=== PATIENT | male | born 1935 | race Caucasian/White ===

== ENCOUNTER 2018-07-24 06:57 | Day surgery (SDC) | payer MEDICARE, BC ==
[~2018-07-24 06:57] MED LIST: Midazolam 1 MG/ML 2 ML SDV ONE; fentaNYL 100 MCG/2 ML SDV ONE
[2018-07-24] MEDS ORDERED: Midazolam 1 MG/ML 2 ML SDV IV ONE ×2 (06:58→07:26)
[2018-07-24] MEDS ORDERED: fentaNYL 100 MCG/2 ML SDV IV ONE ×2 (06:58→07:25)
[2018-07-24] MEDS ORDERED: Dextrose 5%-0.45% NaCl 1,000 ML IV SCH (07:30)
--- NOTE | 2018-07-24 08:03 | OR ---
DATE: 07/24/2018 PROCEDURES PERFORMED: Esophagogastroduodenoscopy and multiple pinch biopsies. INSTRUMENT USED: GIF-H180 Olympus video panendoscope. PREMEDICATIONS: No oral or topical anesthesia used. Fentanyl 50 mcg intravenous, Versed 1 mg intravenous. The procedure was done under pulse oximetry, BP recording, and color television console monitor. INDICATION: The patient with persistent nausea unexplained and not responsive to medical measures, on H2RA. Esophagogastroduodenoscopy is performed for detection of any active erosive lesions, Bhatti esophagus, and/or malignancy also under consideration. H. pylori status to be determined, endoscopic hemostasis therapy if needed. DESCRIPTION OF PROCEDURE: The scope was passed with ease. Adequate visualization of the esophagus was made from proximal to distal areas. No upper esophageal lesions identified. No distal esophageal stricture. No uphill or downhill esophageal varices. No Fernanda-Harkins tear. No evidence of erosive esophagitis by Fostoria criteria. No esophageal polyp or tumor mass identified. Small sliding hiatal hernia was noted. Gastric fundus examination by retroflexion showed no polypoid lesions. No proximal gastric varices noted. No gastric ulcer, malignant mass, or vascular ectasia identified. Duodenal bulb showed no ulcer. Visualized second part of the duodenum was unremarkable. Multiple pinch biopsies were taken from the gastric antrum and proximal body and sent for PyloriTek test for H. pylori, and if negative in an hour, tissues to be sent for histopathology. No bleeding was noted from any of the visualized areas at the completion of examination. Photographs were taken of the duodenal bulb, gastric antrum, fundus, and distal esophagus. IMPRESSION: Sliding hiatal hernia. The patient tolerated the procedure well. [facility] /[id number]
== END 2018-07-24 09:37 | disposition home or self-care (01) ==
LOC: DL.ENDO 06:57
PROVIDERS: ATTEND Internal Medicine Gastroenterology
DX: K29.50 Unspecified chronic gastritis without bleeding (principal); K90.49 Malabsorption due to intolerance, not elsewhere classified; H91.90 Unspecified hearing loss, unspecified ear; M19.90 Unspecified osteoarthritis, unspecified site; N40.0 Benign prostatic hyperplasia without lower urinary tract symptoms; N52.9 Male erectile dysfunction, unspecified
CPT/HCPCS: 43239; 87077; J2250; J3010; J7042

== ENCOUNTER 2020-12-27 10:21 | Day surgery (SDC) | payer OTHER, MEDICARE, BC ==
[2020-12-27] MEDS ORDERED: Sodium Chloride 0.9% 10 ML Syringe IV ONE (10:22)
[2020-12-27] MEDS ORDERED: Dexamethasone 4 MG/ML SDV IV ONE (10:22)
[2020-12-27] MEDS ORDERED: Midazolam 1 MG/ML 2 ML SDV IV ONE (10:22)
[2020-12-27] MEDS ORDERED: Cataract Ophth Solution EYERT ONE (10:30)
[2020-12-27] MEDS ORDERED: Ondansetron 4 MG/2 ML SDV IVPUSH PRN (10:45)
[2020-12-27] MEDS ORDERED: Timolol Maleate 0.5% Ophth Soln 5 ML Bottle EYERT ONE (10:45)
[2020-12-27] MEDS ORDERED: Acetaminophen 325 MG Tab PO PRN (10:45)
[2020-12-27] MEDS ORDERED: Povidone-Iodine 5% Sterile Ophth Soln 30 ML Bottle EYERT ONE (10:45)
[2020-12-27] MEDS ORDERED: Acetaminophen/Codeine 300-30 MG Tab PO PRN (10:45)
[2020-12-27] MEDS ORDERED: Sodium Chloride 0.9% 10 ML Syringe FLUSH PRN (10:45)
[2020-12-27] MEDS ORDERED: Tropicamide 1% Ophth Soln 15 ML Bottle EYERT ONE (10:45)
[2020-12-27] MEDS ORDERED: Proparacaine 0.5% Ophth Soln 15 ML Bottle EYERT ONE (10:45)
[2020-12-27] MEDS ORDERED: Phenylephrine 10% Ophth Soln 5 ML Bot EYERT ONE (10:45)
[2020-12-27] MEDS ORDERED: Moxifloxacin 0.5% Ophth Soln 3 ML Bottle EYERT ONE (10:45)
--- NOTE | 2020-12-28 07:39 | OR ---
DATE: 12/27/2020 PREOPERATIVE DIAGNOSIS: Retained nucleus/epinucleus, right eye. POSTOPERATIVE DIAGNOSIS: Retained nucleus/epinucleus, right eye. ANESTHESIA: Local MAC. INDICATION: Mr. Wilson was seen in the clinic. His examination revealed a piece of nucleus/epinucleus with some surrounding cortex in the inferior chamber angle in the right eye. He has noticed a floater occasionally. He has also had low-grade inflammation. I explained options and recommended removal. I explained risks including, but not limited to infection, loss of vision, need for additional surgery, risks associated with anesthesia amongst others. He voiced understanding and wished to proceed. OPERATIVE DESCRIPTION: After informed consent was obtained and the risks, benefits, and alternatives were explained, Mr. Wilson was brought to the OR and prepped and draped in a sterile fashion. Attention was placed on the right eye. A sterile lid speculum was placed into the right eye to allow operative exposure. A full-thickness paracentesis was then made temporally. Preservative- free lidocaine followed by viscoelastic was injected into the anterior chamber. A 2.75 mm corneal incision was also made temporally. I and A probe was inserted into the anterior chamber. A piece of brunescent nucleus was removed using the I and A tip from the inferior chamber angle. This was aspirated using the assistance of a Nagahara to chop and compress the small fragment. Remaining viscoelastic was then aspirated from the anterior chamber. The wound and paracentesis sites were hydrated using balanced saline solution. 0.1 mL of preservative-free vancomycin was injected intracamerally. Postoperative medications were administered. Sterile patch and shield were placed over the eye. The patient was awakened from light sedation and transported to the postoperative recovery area having tolerated the procedure well. No complications occurred. [facility] /[id number]
== END 2020-12-27 12:51 | disposition home or self-care (01) ==
LOC: DL.SDS 10:21
PROVIDERS: ATTEND Ophthalmology
DX: H59.021 Cataract (lens) fragments in eye following cataract surgery, right eye (principal); I25.10 Atherosclerotic heart disease of native coronary artery without angina pectoris; Z98.890 Other specified postprocedural states; Z90.49 Acquired absence of other specified parts of digestive tract; Z87.891 Personal history of nicotine dependence; Z88.8 Allergy status to other drugs, medicaments and biological substances; Z79.82 Long term (current) use of aspirin
CPT/HCPCS: 66840; J1100; J2250

== ENCOUNTER 2021-01-09 18:46 | Emergency (ER) | payer OTHER, MEDICARE, BC ==
[2021-01-09 20:02] LABS: CORONAVIRUS COVID-19 NAA NEGATIVE (NEGATIVE)
[2021-01-09] MEDS ORDERED: Sodium Chloride 0.9% 1,000 ML IV ONE (21:14)
[2021-01-09] MEDS ORDERED: Metoclopramide 10 MG/2 ML SDV IVPUSH ONE ×2 (21:14→23:56)
--- NOTE | 2021-01-09 21:22 | EDM.PDOC ---
"ED HPI GENERAL MEDICAL PROBLEM - General Chief Complaint: Fever Stated Complaint: 100.2, NAUSEA Time Seen by Provider: 01/09/21 21:05 Source of Information: Reports: Patient History Limitations: Reports: No Limitations - History of Present Illness INITIAL COMMENTS - FREE TEXT/NARRATIVE: This 85 yo male patient was brought to the ED by his family due to a 2 day history of nausea and a fever (101) at home. The patient reports he did attempt to take Zofran for symptom relief, but has had no changes in his symptoms. The patient reports he has a history of cardiac stents. The patient reports he had his gallbladder removed last year due to similar symptoms. The patient denies any abdominal pain. The patient reports his last bowel movement was yesterday and was normal. The patient denies any urinary symptoms. Onset Date: 01/08/21 Duration: Constant Location: Reports: Other Quality: Reports: Other Severity: Moderate Improves with: Reports: None Worsens with: Reports: None Context: Reports: Other Associated Symptoms: Reports: No Other Symptoms - Related Data Allergies Allergy/AdvReac Type Severity Reaction Status Date / Time ezetimibe [From Zetia] Allergy Muscle Verified 12/27/20 10:41 Aches rosuvastatin [From Crestor] Allergy Muscle Verified 12/27/20 10:41 Aches Home Meds: Home Meds Hydrocortisone [Hydrocortisone 2.5% Crm] 1 squirt TOP BID 07/23/18 [History] Latanoprost 1 drop EYEBOTH DAILY 07/23/18 [History] Sildenafil Citrate [Sildenafil] 100 mg PO ASDIRECTED 07/23/18 [History] Tamsulosin [Flomax] 0.4 mg PO .EVERYOTHERDAY 07/23/18 [History] Ofloxacin 1 drop EYERT ASDIRECTED 12/22/20 [History] Past Medical History HEENT History: Reports: Cataract, Hard of Hearing, Impaired Vision Other HEENT History: glasses Cardiovascular History: Respiratory History: Reports: None Gastrointestinal History: Reports: GERD, Other (See Below) Other Gastrointestinal History: PERSISTANT NAUSEA W/O ABILITY TO VOMIT Genitourinary History: Reports: BPH, Prostate Disorder, Other (See Below) Other Genitourinary History: erectile dysfunction. hesitency with urination Musculoskeletal History: Reports: Arthritis, Osteoarthritis Neurological History: Reports: Headaches, Chronic, Other (See Below) Other Neuro History: Deshpande's palsy Psychiatric History: Reports: None Endocrine/Metabolic History: Reports: None Hematologic History: Reports: B12 Deficiency Immunologic History: Reports: None Oncologic (Cancer) History: Reports: None Dermatologic History: Reports: Eczema - Infectious Disease History Infectious Disease History: Reports: Novel Coronavirus - Past Surgical History HEENT Surgical History: Reports: None Cardiovascular Surgical History: Reports: Coronary Artery Stent Respiratory Surgical History: Reports: None GI Surgical History: Reports: Cholecystectomy, Colonoscopy Male Surgical History: Reports: None Endocrine Surgical History: Reports: None Neurological Surgical History: Reports: C-Spine Musculoskeletal Surgical History: Reports: Arthroscopic Knee, Other (See Below) Other Musculoskeletal Surgeries/Procedures:: R) arm tendon repair. Cervical neck fusion. Partial knee replacement Left knee Oncologic Surgical History: Reports: None Social & Family History - Family History Family Medical History: No Pertinent Family History - Caffeine Use Caffeine Use: Reports: Coffee Caffeine Use Comment: 2 cups daily ED ROS GENERAL - Review of Systems Review Of Systems: Comprehensive ROS is negative, except as noted in HPI. ED EXAM, GENERAL - Physical Exam Exam: See Below Exam Limited By: No Limitations General Appearance: Alert, WD/WN, Moderate Distress Eye Exam: Bilateral Eye: EOMI, Normal Inspection, PERRL Ears: Normal External Exam, Normal Canal, Hearing Grossly Normal, Normal TMs Nose: Normal Inspection, Normal Mucosa, No Blood Throat/Mouth: Normal Inspection, Normal Lips, Normal Teeth, Normal Gums, Normal Oropharynx, Normal Voice, No Airway Compromise Head: Atraumatic, Normocephalic Neck: Normal Inspection, Supple, Non-Tender, Full Range of Motion Respiratory/Chest: No Respiratory Distress, Lungs Clear, Normal Breath Sounds, No Accessory Muscle Use, Chest Non-Tender Cardiovascular: Normal Peripheral Pulses, Regular Rate, Rhythm, No Edema, No Gallop, No JVD, No Murmur, No Rub GI/Abdominal: Normal Bowel Sounds, Soft, Non-Tender, No Organomegaly, No Distention, No Abnormal Bruit, No Mass (Male) Exam: Deferred Rectal (Males) Exam: Deferred Back Exam: Normal Inspection, Full Range of Motion, NT Extremities: Normal Inspection, Normal Range of Motion, Non-Tender, Normal Capillary Refill, No Pedal Edema Neurological: Alert, Oriented, CN II-XII Intact, Normal Cognition, Normal Gait, Normal Reflexes, No Motor/Sensory Deficits Psychiatric: Normal Affect, Normal Mood Skin Exam: Warm, Dry, Intact, Normal Color, No Rash Lymphatic: No Adenopathy #1 Interpretation EKG Date: 01/09/21 Time: 21:51 Rhythm: A-Fib Rate (Beats/Min): 76 [place]: Normal P-Wave: Absent ST-T: Normal QT: Normal Comparison: No Change Course - Vital Signs Last Recorded V/S: Last Vital Signs Temp 99.3 F 01/09/21 19:25 Pulse 88 01/09/21 19:25 Resp 16 01/09/21 19:25 BP 142/69 H 01/09/21 19:25 Pulse Ox 96 01/09/21 19:25 - Orders/Labs/Meds Orders: Active Orders 24 hr Category Date Time Status EKG Documentation Completion [RC] STAT Care 01/09/21 21:14 Active Labs: Laboratory Tests 01/09/21 01/09/21 01/09/21 Range/Units 19:10 21:30 21:30 WBC 9.4 (5.0-10.0) 10^3/uL RBC 5.27 (4.6-6.2) 10^6/uL Hgb 16.7 (14.0-18.0) g/dL Hct 50.4 (40.0-54.0) % MCV 95.6 (80-100) fL MCH 31.7 (27.0-34.0) pg MCHC 33.1 (33.0-35.0) g/dL Plt Count 233 (150-450) 10^3/uL Neut % (Auto) 86.0 H (42.2-75.2) % Lymph % (Auto) 7.6 L (20.5-50.1) % [place] % (Auto) 6.3 (2-8) % Eos % (Auto) 0.0 L (1.0-3.0) % Baso % (Auto) 0.1 (0.0-1.0) % Sodium 140 (136-145) mmol/L Potassium 4.9 (3.5-5.1) mmol/L Chloride 104 (98-107) mmol/L Carbon Dioxide 28 (21-32) mmol/L Anion Gap 12.9 (7-13) mEq/L BUN 12 (7-18) mg/dL Creatinine 1.15 (0.70-1.30) mg/dL Est Cr Clr Drug Dosing 51.84 mL/min Estimated GFR (MDRD) > 60 BUN/Creatinine Ratio 10.4 (No establ ref range) Glucose 127 H (70-99) mg/dL Lactic Acid (0.4-2.0) mmol/L Calcium 8.9 (8.5-10.1) mg/dL Total Bilirubin 1.2 H (0.2-1.0) mg/dL AST 13 L (15-37) U/L ALT 15 L (16-63) U/L Alkaline Phosphatase 104 (46-116) U/L Ammonia (11-32) umol/L Troponin I High Sens 38 (<=76) pg/mL Total Protein 7.0 (6.4-8.2) g/dL Albumin 3.9 (3.4-5.0) g/dL Globulin 3.1 Albumin/Globulin Ratio 1.3 Amylase 52 (25-115) U/L Lipase 173 (73-393) U/L Influenza Type A RNA Negative (NEGATIVE) Influenza Type B RNA Negative (NEGATIVE) SARS-CoV-2 RNA (AARON) Negative (NEGATIVE) 01/09/21 01/09/21 Range/Units 21:30 21:30 WBC (5.0-10.0) 10^3/uL RBC (4.6-6.2) 10^6/uL Hgb (14.0-18.0) g/dL Hct (40.0-54.0) % MCV (80-100) fL MCH (27.0-34.0) pg MCHC (33.0-35.0) g/dL Plt Count (150-450) 10^3/uL Neut % (Auto) (42.2-75.2) % Lymph % (Auto) (20.5-50.1) % [place] % (Auto) (2-8) % Eos % (Auto) (1.0-3.0) % Baso % (Auto) (0.0-1.0) % Sodium (136-145) mmol/L Potassium (3.5-5.1) mmol/L Chloride (98-107) mmol/L Carbon Dioxide (21-32) mmol/L Anion Gap (7-13) mEq/L BUN (7-18) mg/dL Creatinine (0.70-1.30) mg/dL Est Cr Clr Drug Dosing mL/min Estimated GFR (MDRD) BUN/Creatinine Ratio (No establ ref range) Glucose (70-99) mg/dL Lactic Acid 0.7 (0.4-2.0) mmol/L Calcium (8.5-10.1) mg/dL Total Bilirubin (0.2-1.0) mg/dL AST (15-37) U/L ALT (16-63) U/L Alkaline Phosphatase (46-116) U/L Ammonia < 10 L (11-32) umol/L Troponin I High Sens (<=76) pg/mL Total Protein (6.4-8.2) g/dL Albumin (3.4-5.0) g/dL Globulin Albumin/Globulin Ratio Amylase (25-115) U/L Lipase (73-393) U/L Influenza Type A RNA (NEGATIVE) Influenza Type B RNA (NEGATIVE) SARS-CoV-2 RNA (AARON) (NEGATIVE) Meds: Medications Discontinued Medications Generic Name Dose Route Start Last Admin Trade Name Freq PRN Reason Stop Dose Admin Sodium Chloride 1,000 mls @ 999 mls/hr 01/09/21 21:14 01/09/21 21:40 Normal Saline IV 01/09/21 22:14 999 mls/hr .BOLUS ONE Administration Iopamidol 100 ml 01/09/21 22:03 01/09/21 22:38 Iopamidol 612 Mg/Ml 100 Ml Bottle IVPUSH 01/09/21 22:04 75 ml ONETIME ONE Administration Metoclopramide HCl 10 mg 01/09/21 21:14 01/09/21 21:40 Metoclopramide 10 Mg/2 Ml Sdv IVPUSH 01/09/21 21:15 10 mg ONETIME ONE Administration - Radiology Interpretation Free Text/Narrative:: [facility] Final Radiology Report Call: [phone] assistance Online chat: [email or web address] Name: ESPERANZA CAST Age: 85Years M Date: 01/09/2021 SSN: -- : [id number] Study: CT ABDOMEN PELVIS W CONT Requesting Physician: Duane Hatch Images: [id number] Addl Studies: Provided Clinical History: Nausea with fever Contrast: With Contrast Medium: Isovue 300 Contrast Amount: 75 mL Contrast Method: Intravenous (IV) Page 1 of 2 PROCEDURE INFORMATION: Exam: CT Abdomen And Pelvis With Contrast Exam date and time: 01/09/2021 10:18 PM Age: 85 years old Clinical indication: Fever and nausea; Prior surgery; Surgery date: 6+ months; Surgery type: Cholecystectomy in 2019; Additional info: Nausea with fever TECHNIQUE: Imaging protocol: Computed tomography of the abdomen and pelvis with contrast. Radiation optimization: All CT scans at this facility use at least one of these dose optimization techniques: automated exposure control; mA and/or kV adjustment per patient size (includes targeted exams where dose is matched to clinical indication); or iterative reconstruction. Contrast material: ISOVUE 300; Contrast volume: 75 ml; Contrast route: INTRAVENOUS (IV); COMPARISON: CT Abdomen Pelvis w Cont 07/23/2018 10:49 AM FINDINGS: Lungs: The lung bases are clear. No effusion Liver: Normal. No mass. Gallbladder and bile ducts: There has been a cholecystectomy. Pancreas: Normal. No ductal dilation. Spleen: Normal. No splenomegaly. Adrenal glands: Normal. No mass. Kidneys and ureters: 2.1 cm right renal cyst. 4 mm nonobstructing left renal pelvis stone. 1 mm nonobstructing left renal pelvis stone. 2.2 cm left renal cyst. Stomach and bowel: Diverticulosis without diverticulitis. 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 Appendix: No evidence of appendicitis. ESPERANZA CAST | Final Radiology Report CONFIDENTIALITY STATEMENT This report is intended only for use by the referring physician, and only in accordance with law. If you received this in error, call [phone]. Page 2 of 2 Intraperitoneal space: Unremarkable. No free air. No significant fluid collection. 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 Lymph nodes: Unremarkable. No enlarged lymph nodes. Urinary bladder: Unremarkable as visualized. Reproductive: Unremarkable as visualized. Bones/joints: Unremarkable. No acute fracture. Soft tissues: Unremarkable. IMPRESSION: 1. No cause for acute pain is identified. 2. 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 3. Diverticulosis without diverticulitis. 4. 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 5. Right renal stones. COMMENTS: Consistent with the [employer]'s Incidental Findings Committee white paper (J Am Gerson Radiol 2018): Any incidental renal lesion less than 1 cm or classified as too small to characterize, or any incidental cystic renal lesion characterized as simple- appearing, is likely benign. No follow-up imaging is recommended for these lesions per consensus recommendations based on imaging criteria. Thank you for allowing us to participate in the care of your patient. Dictated and Authenticated by: Toni Ahuja DO 01/09/2021 11:25 PM Central Time ([place] & [place]) Departure - Departure Time of Disposition: 23:58 Disposition: Home, Self-Care 01 Condition: Fair Clinical Impression: Nausea - Discharge Information *PRESCRIPTION DRUG MONITORING PROGRAM REVIEWED*: Not Applicable *COPY OF PRESCRIPTION DRUG MONITORING REPORT IN PATIENT NISA: Not Applicable Instructions: Nausea, Adult, [id number] Forms: ED Department Discharge Care Plan Goals: The patient and family were advised of the examination, lab and CT results during the visit. The patient was given IV Reglan with improvement of his nausea. The patient was discharged with a script for Reglan (10 mg) #10 to take 1 by mouth every 6 hours as needed for nausea. The patient was encouraged to follow-up with his primary care facility for continued evaluation and treatment. If the patient has any additional symptoms or concerns, the patient should either return to the emergency department or visit his primary care facility. Sepsis Event Note (ED) - Evaluation Sepsis Screening Result: No Definite Risk - Focused Exam Vital Signs: Vital Signs Temp Pulse Resp BP Pulse Ox 01/09/21 19:25 99.3 F 88 16 142/69 H 96 - My Orders Last 24 Hours: My Active Orders 01/09/21 21:14 EKG Documentation Completion [RC] STAT - Assessment/Plan Last 24 Hours: My Active Orders 01/09/21 21:14 EKG Documentation Completion [RC] STAT"
[2021-01-09 21:55] LABS: ANION GAP 12.9 mEq/L (7-13); CHLORIDE,CL 104 mmol/L (98-107); SODIUM,NA 140 mmol/L (136-145)
[2021-01-09] MEDS ORDERED: Iopamidol 612 MG/ML 100 ML Bottle IVPUSH ONE (22:03)
--- NOTE | 2021-01-09 23:25 | CT ---
PROCEDURE INFORMATION: Exam: CT Abdomen And Pelvis With Contrast Exam date and time: 01/09/2021 10:18 PM Age: 85 years old Clinical indication: Fever and nausea; Prior surgery; Surgery date: 6+ months; Surgery type: Cholecystectomy in 2019; Additional info: Nausea with fever TECHNIQUE: Imaging protocol: Computed tomography of the abdomen and pelvis with contrast. Radiation optimization: All CT scans at this facility use at least one of these dose optimization techniques: automated exposure control; mA and/or kV adjustment per patient size (includes targeted exams where dose is matched to clinical indication); or iterative reconstruction. Contrast material: ISOVUE 300; Contrast volume: 75 ml; Contrast route: INTRAVENOUS (IV); COMPARISON: CT Abdomen Pelvis w Cont 07/23/2018 10:49 AM FINDINGS: Lungs: The lung bases are clear. No effusion Liver: Normal. No mass. Gallbladder and bile ducts: There has been a cholecystectomy. Pancreas: Normal. No ductal dilation. Spleen: Normal. No splenomegaly. Adrenal glands: Normal. No mass. Kidneys and ureters: 2.1 cm right renal cyst. 4 mm nonobstructing left renal pelvis stone. 1 mm nonobstructing left renal pelvis stone. 2.2 cm left renal cyst. Stomach and bowel: Diverticulosis without diverticulitis. 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 Appendix: No evidence of appendicitis. Intraperitoneal space: Unremarkable. No free air. No significant fluid collection. 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 Lymph nodes: Unremarkable. No enlarged lymph nodes. Urinary bladder: Unremarkable as visualized. Reproductive: Unremarkable as visualized. Bones/joints: Unremarkable. No acute fracture. Soft tissues: Unremarkable. IMPRESSION: 1. No cause for acute pain is identified. 2. 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 3. Diverticulosis without diverticulitis. 4. 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 5. Right renal stones. COMMENTS: Consistent with the [employer]'s Incidental Findings Committee white paper (J Am Gerson Radiol 2018): Any incidental renal lesion less than 1 cm or classified as too small to characterize, or any incidental cystic renal lesion characterized as simple-appearing, is likely benign. No follow-up imaging is recommended for these lesions per consensus recommendations based on imaging criteria.
== END 2021-01-10 00:14 | disposition home or self-care (01) ==
LOC: DL.ED 18:46
DX: R11.0 Nausea (principal); Z20.822 Contact with and (suspected) exposure to COVID-19; Z86.16 Personal history of COVID-19; Z88.8 Allergy status to other drugs, medicaments and biological substances; Z95.5 Presence of coronary angioplasty implant and graft
CPT/HCPCS: 0240U; 36415; 74177; 80053; 82140; 82150; 83605; 83690; 84484; 85025; 93005; 93010; 96374; 96376; 99284; 99284-25; J2765; J7030; Q9967

== ENCOUNTER 2021-07-26 14:11 | Emergency (ER) | payer OTHER, MEDICARE, BC ==
[2021-07-26] MEDS ORDERED: Sodium Chloride 0.9% 10 ML Syringe FLUSH PRN (14:49)
[2021-07-26 15:17] LABS: CHLORIDE,CL 106 mmol/L (98-107); SODIUM,NA 144 mmol/L (136-145)
[2021-07-26] MEDS ORDERED: Clopidogrel 75 MG Tab PO ONE (15:35)
[2021-07-26] MEDS ORDERED: Iopamidol 755 Mg/ML 100 ML Bottle IVPUSH ONE (15:55)
== END 2021-07-26 18:45 | disposition home or self-care (01) ==
LOC: DL.ED 14:11
DX: G45.9 Transient cerebral ischemic attack, unspecified (principal); N40.0 Benign prostatic hyperplasia without lower urinary tract symptoms; M19.90 Unspecified osteoarthritis, unspecified site; Z88.8 Allergy status to other drugs, medicaments and biological substances; Z79.899 Other long term (current) drug therapy; Z20.822 Contact with and (suspected) exposure to COVID-19
CPT/HCPCS: 36415; 70450; 70496; 70498; 80053; 83735; 84100; 84443; 85025; 87635; 93005; 99285; A9270; Q9967; U0002

== ENCOUNTER 2023-10-04 10:49 | Emergency (ER) | payer MEDICARE, BC ==
[2023-10-04] MEDS: Iopamidol 755 Mg/ML 100 ML Bottle IVPUSH ONE (11:09)
[2023-10-04 11:12] LABS: BASOPHILS PERCENT AUTO 0.2 % (0.0-1.0); EOSINOPHILS PERCENT AUTO 1.4 % (1.0-3.0); HEMOGLOBIN 15.7 g/dL (14.0-18.0); MEAN CORPUSCULAR HEMOGLOBIN 31.3 pg (27.0-34.0); MEAN CORPUSCULAR HGB CONC 32.7 g/dL (33.0-35.0); MEAN CORPUSCULAR VOLUME 95.8 fL (80-100); NEUTROPHILS PERCENT AUTO 60.4 % (42.2-75.2); PLATELET COUNT,PLT 204 10^3/uL (150-450); RED BLOOD CELL COUNT 5.01 10^6/uL (4.6-6.2); WHITE BLOOD CELL COUNT,WBC 5.7 10^3/uL (5.0-10.0)
[2023-10-04 11:35] LABS: A/G RATIO 1.3; ALANINE AMINOTRANSFERASE,ALT 26 U/L (16-63); ALBUMIN 3.9 g/dL (3.4-5.0); ALKALINE PHOSPHATASE 132 U/L (46-116); ANION GAP 10.6 mEq/L (7-13); ASPARTATE AMNIOTRANSFERASE,AST 16 U/L (15-37); BILIRUBIN TOTAL 1.1 mg/dL (0.2-1.0); BLOOD UREA NITROGEN,BUN 16 mg/dL (7-18); BUN/CREATININE RATIO 14.5 (No establ ref range); CALCIUM 9.2 mg/dL (8.5-10.1); CARBON DIOXIDE,CO2 32 mmol/L (21-32); CHLORIDE,CL 104 mmol/L (98-107); GLUCOSE RANDOM 131 mg/dL (70-99); POTASSIUM,K 4.6 mmol/L (3.5-5.1); PROTEIN TOTAL,TP 6.8 g/dL (6.4-8.2); SODIUM,NA 142 mmol/L (136-145)
[2023-10-04 11:39] LABS: ESTIMATED GFR 66 mL/min (>=60)
[2023-10-04] MEDS: Sodium Chloride 0.9% 10 ML Syringe FLUSH PRN (12:03)
[2023-10-04] MEDS: Aspirin 81 MG Tab.Chew PO ONE (12:05)
[2023-10-04 13:02] LABS: APPEARANCE,URINE CLEAR (CLEAR); BILIRUBIN,URINE NEGATIVE (NEGATIVE); COLOR,URINE YELLOW (YELLOW); GLUCOSE,URINE NEGATIVE (NEGATIVE); KETONES,URINE NEGATIVE (NEGATIVE); LEUKOCYTE ESTERASE,URINE NEGATIVE (NEGATIVE); NITRITE,URINE NEGATIVE (NEGATIVE); OCCULT BLOOD,URINE NEGATIVE (NEGATIVE); PROTEIN,URINE NEGATIVE (NEGATIVE); UROBILINOGEN,URINE 0.2 mg/dL (0.2-1.0)
== END 2023-10-04 13:37 | disposition home or self-care (01) ==
LOC: DL.ED 10:49
DX: G45.9 Transient cerebral ischemic attack, unspecified (principal); K21.9 Gastro-esophageal reflux disease without esophagitis; Z86.16 Personal history of COVID-19; Z95.5 Presence of coronary angioplasty implant and graft; Z79.899 Other long term (current) drug therapy; Z88.8 Allergy status to other drugs, medicaments and biological substances
CPT/HCPCS: 36415; 70450; 70496; 70498; 71045; 80053; 81003; 82947; 83605; 84484; 85025; 93005; 93010; 99284; 99285; A9270; Q9967; J3490

== ENCOUNTER 2024-03-11 14:11 | Emergency (ER) | payer MEDICARE, BC ==
[2024-03-11 14:14] LABS: HEMATOCRIT 37.4 % (40.0-54.0); HEMOGLOBIN 12.3 g/dL (14.0-18.0); MEAN CORPUSCULAR HGB CONC 32.9 g/dL (33.0-35.0); MEAN CORPUSCULAR VOLUME 106.6 fL (80-100); PLATELET COUNT,PLT 133 10^3/uL (150-450); RED BLOOD CELL COUNT 3.51 10^6/uL (4.6-6.2); WHITE BLOOD CELL COUNT,WBC 10.1 10^3/uL (5.0-10.0)
[2024-03-11 14:32] LABS: ANION GAP 11.4 mEq/L (7-13); BILIRUBIN DIRECT 3.4 mg/dL (0.0-0.2); BILIRUBIN INDIRECT 1.5; BILIRUBIN TOTAL 4.9 mg/dL (0.2-1.0); CALCIUM 8.9 mg/dL (8.5-10.1); CREATININE 1.06 mg/dL (0.70-1.30); EST CRCL DRUG DOSING (CG) 50.45 mL/min; POTASSIUM,K 4.4 mmol/L (3.5-5.1); PROTEIN TOTAL,TP 6.1 g/dL (6.4-8.2)
[2024-03-11 14:42] LABS: A/G RATIO 0.97
[2024-03-11 14:45] LABS: BASOPHILS PERCENT AUTO 0.1 % (0.0-1.0); EOSINOPHILS PERCENT AUTO 0.1 % (1.0-3.0); LYMPHOCYTES PERCENT AUTO 2.8 % (20.5-50.1)
[2024-03-11 14:53] LABS: LYMPHOCYTES PERCENT MAN 4 % (20-50); MONOCYTES PERCENT MAN 19 % (2-8); SEG NEUTROPHILS PERCENT MAN 77 % (42-75)
[2024-03-11] MEDS: Sodium Chloride 0.9% 1,000 ML IV SCH ×2 (15:04→17:27)
[2024-03-11 15:06] LABS: APPEARANCE,URINE CLEAR (CLEAR); BILIRUBIN,URINE MODERATE (NEGATIVE); COLOR,URINE DARK YELLOW (YELLOW); GLUCOSE,URINE NEGATIVE (NEGATIVE); KETONES,URINE NEGATIVE (NEGATIVE); LEUKOCYTE ESTERASE,URINE NEGATIVE (NEGATIVE); NITRITE,URINE NEGATIVE (NEGATIVE); OCCULT BLOOD,URINE NEGATIVE (NEGATIVE); PH,URINE 7.5 (5.0-9.0); PROTEIN,URINE 30 (NEGATIVE); UROBILINOGEN,URINE >=8.0 mg/dL (0.2-1.0)
[2024-03-11] MEDS: Iopamidol 612 MG/ML 100 ML Bottle IVPUSH ONE (15:10)
[2024-03-11 15:41] LABS: AMORPHOUS SEDIMENT,URINE RARE /HPF (NOT SEEN); BACTERIA,URINE RARE /HPF (0-FEW/HPF); EPITHELIAL CELLS,URINE RARE /HPF (NOT SEEN); MUCUS,URINE RARE /LPF (NOT SEEN); RBC,URINE 0-5 /HPF (0-5); WBC,URINE 0-5 /HPF (0-5/HPF)
[2024-03-11] MEDS: Piperacillin/Tazobactam 3.375 GM in Sodium Chloride 0.9% 100 ML IV ONE (17:27)
== END 2024-03-11 19:16 ==
LOC: DL.ED 14:11
DX: K76.82 Hepatic encephalopathy (principal); C25.9 Malignant neoplasm of pancreas, unspecified; R50.9 Fever, unspecified; Z86.16 Personal history of COVID-19; Z95.1 Presence of aortocoronary bypass graft; Z90.49 Acquired absence of other specified parts of digestive tract; Z87.891 Personal history of nicotine dependence; Z79.899 Other long term (current) drug therapy; Z88.8 Allergy status to other drugs, medicaments and biological substances
CPT/HCPCS: 36415; 70450; 71045; 74177; 80048; 80076; 81001; 82140; 83605; 84484; 85025; 87040; 87804; 96361; 96365; 99285-25; C1758; J2543; J3490; J7030; Q9967; U0002

== ENCOUNTER 2024-08-19 13:09 | Emergency (ER) | payer MEDICARE, BC ==
[2024-08-19 13:57] LABS: BASOPHILS PERCENT AUTO 0.3 % (0.0-1.0); HEMATOCRIT 41.4 % (40.0-54.0); HEMOGLOBIN 13.4 g/dL (14.0-18.0); LYMPHOCYTES PERCENT AUTO 26.1 % (20.5-50.1); MEAN CORPUSCULAR HEMOGLOBIN 32.5 pg (27.0-34.0); MEAN CORPUSCULAR HGB CONC 32.4 g/dL (33.0-35.0); MEAN CORPUSCULAR VOLUME 100.5 fL (80-100); MONOCYTES PERCENT AUTO 14.6 % (2-8); PLATELET COUNT,PLT 88 10^3/uL (150-450); RED BLOOD CELL COUNT 4.12 10^6/uL (4.6-6.2); WHITE BLOOD CELL COUNT,WBC 3.5 10^3/uL (5.0-10.0)
[2024-08-19 14:06] LABS: APPEARANCE,URINE CLEAR (CLEAR); BILIRUBIN,URINE NEGATIVE (NEGATIVE); COLOR,URINE YELLOW (YELLOW); GLUCOSE,URINE NEGATIVE (NEGATIVE); KETONES,URINE NEGATIVE (NEGATIVE); LEUKOCYTE ESTERASE,URINE NEGATIVE (NEGATIVE); NITRITE,URINE NEGATIVE (NEGATIVE); OCCULT BLOOD,URINE TRACE-INTACT (NEGATIVE); PROTEIN,URINE NEGATIVE (NEGATIVE); UROBILINOGEN,URINE 0.2 mg/dL (0.2-1.0)
[2024-08-19 14:17] LABS: PROTHROMBIN TIME 10.5 SEC (9.0-12.0)
[2024-08-19 14:17] LABS: BACTERIA,URINE FEW /HPF (0-FEW/HPF); EPITHELIAL CELLS,URINE RARE /HPF (NOT SEEN); MUCUS,URINE FEW /LPF (NOT SEEN); WBC,URINE 0-5 /HPF (0-5/HPF)
[2024-08-19 14:18] LABS: RBC,URINE 0-5 /HPF (0-5)
[2024-08-19 14:23] LABS: ALANINE AMINOTRANSFERASE,ALT 22 U/L (16-63); ALKALINE PHOSPHATASE 216 U/L (46-116); ANION GAP 7.8 mEq/L (7-13); ASPARTATE AMNIOTRANSFERASE,AST 26 U/L (15-37); BILIRUBIN TOTAL 0.5 mg/dL (0.2-1.0); BLOOD UREA NITROGEN,BUN 12 mg/dL (7-18); BUN/CREATININE RATIO 12.9 (No establ ref range); CALCIUM 8.9 mg/dL (8.5-10.1); CARBON DIOXIDE,CO2 32 mmol/L (21-32); CHLORIDE,CL 104 mmol/L (98-107); CREATININE 0.93 mg/dL (0.70-1.30); EST CRCL DRUG DOSING (CG) 57.02 mL/min; GLUCOSE RANDOM 102 mg/dL (70-99); MAGNESIUM 1.8 mg/dL (1.8-2.4); POTASSIUM,K 4.8 mmol/L (3.5-5.1); PROTEIN TOTAL,TP 6.5 g/dL (6.4-8.2); SODIUM,NA 139 mmol/L (136-145)
[2024-08-19 14:24] LABS: A/G RATIO 0.86; ESTIMATED GFR 80 mL/min (>=60); ETHANOL BLOOD MEDICAL < 3 mg/dL (0)
[2024-08-19] MEDS: Sodium Chloride 0.9% 1,000 ML IV ONE ×2 (14:47→15:42)
== END 2024-08-19 17:00 | disposition home or self-care (01) ==
LOC: DL.ED 13:09
DX: R41.82 Altered mental status, unspecified (principal); E86.0 Dehydration; D61.818 Other pancytopenia; R00.1 Bradycardia, unspecified; Z95.5 Presence of coronary angioplasty implant and graft; Z90.49 Acquired absence of other specified parts of digestive tract; Z86.16 Personal history of COVID-19; Z79.899 Other long term (current) drug therapy; Z88.8 Allergy status to other drugs, medicaments and biological substances
CPT/HCPCS: 36415; 70450; 71046; 80053; 80307; 81001; 82140; 82947; 83735; 84443; 84484; 85025; 85610; 93005; 93010; 96360; 96361; 99285; 99285-25; J7030

== ENCOUNTER 2024-08-20 11:09 | Emergency (ER) | payer MEDICARE, BC ==
[2024-08-20 11:50] LABS: BASOPHILS PERCENT AUTO 0.2 % (0.0-1.0); EOSINOPHILS PERCENT AUTO 1.2 % (1.0-3.0); HEMATOCRIT 41.3 % (40.0-54.0); HEMOGLOBIN 13.1 g/dL (14.0-18.0); LYMPHOCYTES PERCENT AUTO 19.2 % (20.5-50.1); MEAN CORPUSCULAR HEMOGLOBIN 31.6 pg (27.0-34.0); MEAN CORPUSCULAR HGB CONC 31.7 g/dL (33.0-35.0); MEAN CORPUSCULAR VOLUME 99.8 fL (80-100); MONOCYTES PERCENT AUTO 10.4 % (2-8); PLATELET COUNT,PLT 104 10^3/uL (150-450); RED BLOOD CELL COUNT 4.14 10^6/uL (4.6-6.2); WHITE BLOOD CELL COUNT,WBC 4.2 10^3/uL (5.0-10.0)
[2024-08-20 12:06] LABS: INR 1.1 (0.9-1.2)
[2024-08-20] MEDS: Iopamidol 612 MG/ML 100 ML Bottle IVPUSH ONE (12:15)
[2024-08-20 12:48] LABS: A/G RATIO 0.91; ALBUMIN 3.1 g/dL (3.4-5.0); ANION GAP 11.6 mEq/L (7-13); BILIRUBIN TOTAL 0.8 mg/dL (0.2-1.0); BUN/CREATININE RATIO 11.5 (No establ ref range); CALCIUM 9.3 mg/dL (8.5-10.1); CREATININE 0.87 mg/dL (0.70-1.30); EST CRCL DRUG DOSING (CG) 60.95 mL/min; MAGNESIUM 1.7 mg/dL (1.8-2.4); POTASSIUM,K 4.6 mmol/L (3.5-5.1); PROTEIN TOTAL,TP 6.5 g/dL (6.4-8.2)
[2024-08-20 13:23] LABS: APPEARANCE,URINE CLEAR (CLEAR); BILIRUBIN,URINE NEGATIVE (NEGATIVE); COLOR,URINE YELLOW (YELLOW); GLUCOSE,URINE NEGATIVE (NEGATIVE); KETONES,URINE NEGATIVE (NEGATIVE); LEUKOCYTE ESTERASE,URINE NEGATIVE (NEGATIVE); NITRITE,URINE NEGATIVE (NEGATIVE); OCCULT BLOOD,URINE TRACE-INTACT (NEGATIVE); PH,URINE 7.5 (5.0-9.0); PROTEIN,URINE NEGATIVE (NEGATIVE); UROBILINOGEN,URINE 0.2 mg/dL (0.2-1.0)
[2024-08-20 13:50] LABS: BACTERIA,URINE RARE /HPF (0-FEW/HPF); EPITHELIAL CELLS,URINE RARE /HPF (NOT SEEN); WBC,URINE 0-5 /HPF (0-5/HPF)
== END 2024-08-20 13:47 ==
LOC: DL.ED 11:09
DX: I63.9 Cerebral infarction, unspecified (principal); Z86.16 Personal history of COVID-19; Z90.49 Acquired absence of other specified parts of digestive tract; Z79.899 Other long term (current) drug therapy; Z88.8 Allergy status to other drugs, medicaments and biological substances
CPT/HCPCS: 36415; 70450; 70496; 70498; 71045; 80053; 81001; 82140; 82947; 83735; 84484; 85025; 85610; 93005; 93010; 99285; Q9967

== ENCOUNTER 2024-08-24 21:52 | Emergency (ER) | payer MEDICARE, BC ==
[2024-08-24 22:13] LABS: BASOPHILS PERCENT AUTO 0.2 % (0.0-1.0); EOSINOPHILS PERCENT AUTO 0.3 % (1.0-3.0); HEMATOCRIT 43.1 % (40.0-54.0); LYMPHOCYTES PERCENT AUTO 4.8 % (20.5-50.1); MEAN CORPUSCULAR HGB CONC 32.5 g/dL (33.0-35.0); MEAN CORPUSCULAR VOLUME 98.4 fL (80-100); MONOCYTES PERCENT AUTO 10.7 % (2-8); PLATELET COUNT,PLT 94 10^3/uL (150-450); RED BLOOD CELL COUNT 4.38 10^6/uL (4.6-6.2); WHITE BLOOD CELL COUNT,WBC 5.9 10^3/uL (5.0-10.0)
[2024-08-24 22:37] LABS: ANION GAP 7.4 mEq/L (7-13); BILIRUBIN TOTAL 1.7 mg/dL (0.2-1.0); C-REACTIVE PROTEIN 0.89 ng/dL (<=0.50); CALCIUM 9.1 mg/dL (8.5-10.1); EST CRCL DRUG DOSING (CG) 56.48 mL/min; MAGNESIUM 1.7 mg/dL (1.8-2.4); POTASSIUM,K 4.4 mmol/L (3.5-5.1); PROTEIN TOTAL,TP 6.5 g/dL (6.4-8.2)
[2024-08-24 22:38] LABS: A/G RATIO 0.86
[2024-08-24] MEDS: Acetaminophen 500 MG Tab PO ONE (22:38)
[2024-08-24 22:40] LABS: LACTIC ACID 1.5 mmol/L (0.4-2.0)
[2024-08-24 22:44] LABS: PROTHROMBIN TIME 10.9 SEC (9.0-12.0); PTT,PARTIAL THROMBOPLSTIN TIME 22.7 SEC (22.0-34.0)
[2024-08-24] MEDS: Lactated Ringers 1,000 ML IV ONE (22:58)
[2024-08-24] MEDS: cefTRIAXone 1 GM Vial IVPUSH ONE (23:00)
[2024-08-24 23:01] LABS: APPEARANCE,URINE CLEAR (CLEAR); BILIRUBIN,URINE NEGATIVE (NEGATIVE); COLOR,URINE DARK YELLOW (YELLOW); GLUCOSE,URINE NEGATIVE (NEGATIVE); KETONES,URINE NEGATIVE (NEGATIVE); LEUKOCYTE ESTERASE,URINE NEGATIVE (NEGATIVE); NITRITE,URINE NEGATIVE (NEGATIVE); OCCULT BLOOD,URINE TRACE-LYSED (NEGATIVE); PROTEIN,URINE NEGATIVE (NEGATIVE); UROBILINOGEN,URINE >=8.0 mg/dL (0.2-1.0)
[2024-08-24 23:09] LABS: AMORPHOUS SEDIMENT,URINE RARE /HPF (NOT SEEN); AMPHETAMINES,URINE NEGATIVE (NEGATIVE); BACTERIA,URINE RARE /HPF (0-FEW/HPF); BARBITURATES,URINE NEGATIVE (NEGATIVE); BENZODIAZEPINE,URINE NEGATIVE (NEGATIVE); EPITHELIAL CELLS,URINE RARE /HPF (NOT SEEN); MDMA (ECSTASY), URINE NEGATIVE (NEGATIVE); METHADONE,URINE NEGATIVE (NEGATIVE); METHAMPHETAMINES,URINE NEGATIVE (NEGATIVE); MUCUS,URINE FEW /LPF (NOT SEEN); OPIATES,URINE NEGATIVE (NEGATIVE); OXYCODONE,URINE NEGATIVE (NEGATIVE); PHENCYCLIDINE,URINE NEGATIVE (NEGATIVE); RBC,URINE 0-5 /HPF (0-5); TCA,URINE NEGATIVE (NEGATIVE)
[2024-08-24 23:44] LABS: CORONAVIRUS COVID-19 NAA NEGATIVE (NEGATIVE); INFLUENZA A NAA NEGATIVE (NEGATIVE); INFLUENZA B NAA NEGATIVE (NEGATIVE); RESPIRATORY SYNCYTIAL VIR NAA NEGATIVE (NEGATIVE)
[2024-08-24] MEDS: Ondansetron 4 MG/2 ML SDV IVPUSH ONE (23:53)
[2024-08-25] MEDS: Lactulose Soln 10 GM/15 ML 30 ML UD Cup PO ONE (00:48)
[2024-08-25] MEDS: Iopamidol 755 Mg/ML 100 ML Bottle IVPUSH ONE (01:39)
[2024-08-25] MEDS: Sodium Chloride 0.9% 10 ML Syringe FLUSH PRN (01:57)
[2024-08-25] MEDS: Meropenem 1 GM SDV IVPUSH ONE (03:04)
== END 2024-08-25 04:14 ==
LOC: DL.ED 21:52
DX: K83.09 Other cholangitis (principal); R41.82 Altered mental status, unspecified; K21.9 Gastro-esophageal reflux disease without esophagitis; M19.90 Unspecified osteoarthritis, unspecified site; Z86.16 Personal history of COVID-19; Z90.49 Acquired absence of other specified parts of digestive tract; Z88.5 Allergy status to narcotic agent; Z88.8 Allergy status to other drugs, medicaments and biological substances; Z79.82 Long term (current) use of aspirin; Z79.899 Other long term (current) drug therapy
CPT/HCPCS: 0241U; 36415; 71045; 74174; 80053; 80305; 81001; 82140; 82947; 83605; 83735; 83880; 84145; 84484; 85025; 85610; 85730; 86140; 87040; 93005; 96361; 96374; 96375; 99285; A9270; J0696; J2185; J2405; J7120; Q9967

== ENCOUNTER 2024-08-29 20:01 | Inpatient (IN) | payer MEDICARE, BC ==
[2024-08-29 20:55] LABS: HEMATOCRIT 43.4 % (40.0-54.0); HEMOGLOBIN 13.8 g/dL (14.0-18.0); LYMPHOCYTES PERCENT AUTO 11.8 % (20.5-50.1); MEAN CORPUSCULAR HEMOGLOBIN 31.4 pg (27.0-34.0); MEAN CORPUSCULAR HGB CONC 31.8 g/dL (33.0-35.0); MEAN CORPUSCULAR VOLUME 98.9 fL (80-100); MONOCYTES PERCENT AUTO 9.4 % (2-8); NEUTROPHILS PERCENT AUTO 77.8 % (42.2-75.2); PLATELET COUNT,PLT 145 10^3/uL (150-450); RED BLOOD CELL COUNT 4.39 10^6/uL (4.6-6.2); WHITE BLOOD CELL COUNT,WBC 5.9 10^3/uL (5.0-10.0)
[2024-08-29 21:22] LABS: LACTIC ACID 1.2 mmol/L (0.4-2.0)
[2024-08-29 21:24] LABS: ALANINE AMINOTRANSFERASE,ALT 38 U/L (16-63); ALBUMIN 3.2 g/dL (3.4-5.0); ALKALINE PHOSPHATASE 261 U/L (46-116); ANION GAP 6.4 mEq/L (7-13); ASPARTATE AMNIOTRANSFERASE,AST 16 U/L (15-37); BILIRUBIN TOTAL 0.8 mg/dL (0.2-1.0); BLOOD UREA NITROGEN,BUN 10 mg/dL (7-18); BUN/CREATININE RATIO 10.3 (No establ ref range); CALCIUM 8.8 mg/dL (8.5-10.1); CARBON DIOXIDE,CO2 32 mmol/L (21-32); CHLORIDE,CL 100 mmol/L (98-107); CREATININE 0.97 mg/dL (0.70-1.30); GLUCOSE RANDOM 126 mg/dL (70-99); MAGNESIUM 1.7 mg/dL (1.8-2.4); POTASSIUM,K 4.4 mmol/L (3.5-5.1); PROTEIN TOTAL,TP 6.8 g/dL (6.4-8.2); SODIUM,NA 134 mmol/L (136-145)
[2024-08-29 21:25] LABS: A/G RATIO 0.89; ESTIMATED GFR 76 mL/min (>=60)
[2024-08-29 22:17] LABS: APPEARANCE,URINE CLEAR (CLEAR); BILIRUBIN,URINE NEGATIVE (NEGATIVE); COLOR,URINE YELLOW (YELLOW); GLUCOSE,URINE NEGATIVE (NEGATIVE); KETONES,URINE NEGATIVE (NEGATIVE); LEUKOCYTE ESTERASE,URINE NEGATIVE (NEGATIVE); NITRITE,URINE NEGATIVE (NEGATIVE); OCCULT BLOOD,URINE TRACE-LYSED (NEGATIVE); PROTEIN,URINE TRACE (NEGATIVE); UROBILINOGEN,URINE 0.2 mg/dL (0.2-1.0)
[2024-08-29 22:25] LABS: WBC,URINE 0-5 /HPF (0-5/HPF)
[2024-08-29 22:26] LABS: BACTERIA,URINE RARE /HPF (0-FEW/HPF); EPITHELIAL CELLS,URINE RARE /HPF (NOT SEEN)
[2024-08-29] MEDS ORDERED: Albuterol/Ipratropium 3.0-0.5 MG/3 ML Neb Soln NEB PRN (23:48)
[2024-08-29] MEDS ORDERED: Sennosides/Docusate Sodium 50-8.6 MG Tab PO PRN (23:48)
[2024-08-29] MEDS ORDERED: Naloxone 2 MG/2 ML Syringe IVPUSH PRN (23:48)
[2024-08-29] MEDS ORDERED: Ondansetron 4 MG/2 ML SDV IVPUSH PRN (23:48)
[2024-08-29] MEDS ORDERED: HYDROmorphone 0.5 MG/0.5 ML Syringe IVPUSH PRN (23:48)
[2024-08-29] MEDS ORDERED: Magnesium Hydroxide 400 MG/5 ML Susp 30 ML Cup PO PRN (23:48)
[2024-08-29] MEDS ORDERED: oxyCODONE 5 MG Tab PO PRN (23:48)
[2024-08-29] MEDS ORDERED: Polyethylene Glycol 3350 Powder 17 GM Packet PO PRN (23:48)
[2024-08-29] MEDS ORDERED: Zolpidem 5 MG Tab PO PRN (23:48)
[2024-08-29] MEDS ORDERED: traMADol 50 MG Tab PO PRN (23:54)
[2024-08-29] MEDS ORDERED: Prochlorperazine 5 MG Tab PO PRN (23:55)
[2024-08-30 00:18] LABS: T4 FREE 1.09 ng/dL (0.76-1.46); TSH ULTRASENSITIVE 0.96 uIU/mL (0.36-3.74)
[2024-08-30] MEDS: Magnesium Sulf/Wat 2 GM/50 mL 2 GM in Premix Bag 1 BAG IV ONE (00:38)
[2024-08-30] MEDS: Dextrose 5%-0.9% NaCl 1,000 ML IV SCH (00:39)
[2024-08-30] MEDS: Acetaminophen 325 MG Tab PO PRN (04:06)
[2024-08-30 06:38] LABS: BASOPHILS PERCENT AUTO 0.3 % (0.0-1.0); EOSINOPHILS PERCENT AUTO 1.5 % (1.0-3.0); HEMATOCRIT 39.8 % (40.0-54.0); HEMOGLOBIN 13.6 g/dL (14.0-18.0); LYMPHOCYTES PERCENT AUTO 19.3 % (20.5-50.1); MEAN CORPUSCULAR HEMOGLOBIN 32.9 pg (27.0-34.0); MEAN CORPUSCULAR HGB CONC 34.2 g/dL (33.0-35.0); MEAN CORPUSCULAR VOLUME 96.4 fL (80-100); MONOCYTES PERCENT AUTO 13.7 % (2-8); NEUTROPHILS PERCENT AUTO 65.2 % (42.2-75.2); PLATELET COUNT,PLT 160 10^3/uL (150-450); RED BLOOD CELL COUNT 4.13 10^6/uL (4.6-6.2); WHITE BLOOD CELL COUNT,WBC 5.9 10^3/uL (5.0-10.0)
[2024-08-30] MEDS: Pantoprazole 40 MG Tab.CR PO SCH (06:40)
[2024-08-30 07:01] LABS: ANION GAP 10.2 mEq/L (7-13); BILIRUBIN TOTAL 0.8 mg/dL (0.2-1.0); BUN/CREATININE RATIO 12.9 (No establ ref range); CALCIUM 8.9 mg/dL (8.5-10.1); CREATININE 0.85 mg/dL (0.70-1.30); EST CRCL DRUG DOSING (CG) 66.44 mL/min; MAGNESIUM 2.3 mg/dL (1.8-2.4); POTASSIUM,K 4.2 mmol/L (3.5-5.1); PROTEIN TOTAL,TP 6.5 g/dL (6.4-8.2)
[2024-08-30 07:02] LABS: A/G RATIO 0.86
[2024-08-30 11:54] LABS: APPEARANCE,URINE CLEAR (CLEAR); BILIRUBIN,URINE NEGATIVE (NEGATIVE); COLOR,URINE YELLOW (YELLOW); GLUCOSE,URINE NEGATIVE (NEGATIVE); KETONES,URINE NEGATIVE (NEGATIVE); LEUKOCYTE ESTERASE,URINE NEGATIVE (NEGATIVE); NITRITE,URINE NEGATIVE (NEGATIVE); OCCULT BLOOD,URINE SMALL (NEGATIVE); PROTEIN,URINE NEGATIVE (NEGATIVE); UROBILINOGEN,URINE 0.2 mg/dL (0.2-1.0)
[2024-08-30 12:07] LABS: AMORPHOUS SEDIMENT,URINE FEW /HPF (NOT SEEN); BACTERIA,URINE RARE /HPF (0-FEW/HPF); EPITHELIAL CELLS,URINE RARE /HPF (NOT SEEN); RBC,URINE 0-5 /HPF (0-5); WBC,URINE 0-5 /HPF (0-5/HPF)
[2024-08-30] MEDS: Mirtazapine 15 MG Tab PO SCH (20:21)
[2024-08-30] MEDS: Sodium Chloride 0.9% 10 ML Syringe FLUSH PRN (20:25)
[2024-08-31] MEDS: Atropine 1% Ophth Soln 5 ML Bottle SL PRN (00:45)
[2024-08-31 06:36] LABS: BASOPHILS PERCENT AUTO 0.2 % (0.0-1.0); HEMATOCRIT 44.9 % (40.0-54.0); HEMOGLOBIN 14.5 g/dL (14.0-18.0); LYMPHOCYTES PERCENT AUTO 13.1 % (20.5-50.1); MEAN CORPUSCULAR HEMOGLOBIN 31.5 pg (27.0-34.0); MEAN CORPUSCULAR HGB CONC 32.3 g/dL (33.0-35.0); MEAN CORPUSCULAR VOLUME 97.6 fL (80-100); MONOCYTES PERCENT AUTO 12.1 % (2-8); NEUTROPHILS PERCENT AUTO 72.6 % (42.2-75.2); PLATELET COUNT,PLT 138 10^3/uL (150-450)
[2024-08-31 07:07] LABS: A/G RATIO 0.83; ANION GAP 9.5 mEq/L (7-13); BILIRUBIN TOTAL 0.8 mg/dL (0.2-1.0); CALCIUM 8.9 mg/dL (8.5-10.1); CREATININE 0.86 mg/dL (0.70-1.30); EST CRCL DRUG DOSING (CG) 65.67 mL/min; POTASSIUM,K 4.5 mmol/L (3.5-5.1); PROTEIN TOTAL,TP 6.6 g/dL (6.4-8.2)
[2024-08-31 07:20] LABS: C-REACTIVE PROTEIN < 0.50 ng/dL (<=0.50)
[2024-08-31] MEDS: Hydrochlorothiazide/Triamterene 25-37.5 Tab PO SCH (09:26)
[2024-08-31] MEDS: Cholecalciferol (Vitamin D3) 10 MCG Tab PO SCH (09:27)
[2024-08-31] MEDS: Acyclovir 200 MG Cap PO ONE (11:14)
[2024-08-31] MEDS: Acetaminophen 650 MG Supp RECTAL PRN (13:30)
[2024-08-31] MEDS: LORazepam 2 MG/ML SDV IVPUSH PRN (15:41)
[2024-08-31] MEDS: Scopalamine 1mg/3day Transdermal Patch TOP ONE (15:42)
[2024-08-31] MEDS ORDERED: Atropine 1% Ophth Soln 5 ML Bottle SL PRN (15:45)
[2024-08-31] MEDS ORDERED: Glycopyrrolate 0.2 MG/ML 2 ML SDV IVPUSH PRN (18:59)
[2024-08-31] MEDS: Glycopyrrolate 0.2 MG/ML 2 ML SDV IVPUSH ONE (19:54)
[2024-08-31] MEDS ORDERED: Acyclovir 200 MG Cap PO SCH (21:00)
[2024-08-31] MEDS ORDERED: amLODIPine 5 MG Tab PO SCH (21:00)
[2024-08-31] MEDS: Morphine 2 MG/ML SYRINGE IVPUSH PRN (21:29)
[2024-08-31] MEDS: Check SCOPOLAMINE Patch TRDERM SCH (23:23)
[2024-09-01] MEDS: Morphine 2 MG/ML SYRINGE IVPUSH PRN (17:40)
[2024-09-01] MEDS: LORazepam 2 MG/ML SDV IVPUSH PRN (17:40)
== END 2024-09-02 16:45 | disposition expired | DRG 640 ==
LOC: DL.ED 20:01 → DL.MS 23:11 → OBSVTOIN 08-30 13:38 → DL.MS 08-31 12:37
PROVIDERS: ADMIT Internal Medicine; ATTEND Internal Medicine
PROC: 0T9B70Z Drainage of Bladder with Drainage Device, Via Natural or Artificial Opening (ICD-10-PCS; principal; 2024-08-31)
DX: R53.1 Weakness (principal); R62.7 Adult failure to thrive; D61.810 Antineoplastic chemotherapy induced pancytopenia; I63.9 Cerebral infarction, unspecified; C25.9 Malignant neoplasm of pancreas, unspecified; E46 Unspecified protein-calorie malnutrition; E87.1 Hypo-osmolality and hyponatremia; R65.10 Systemic inflammatory response syndrome (SIRS) of non-infectious origin without acute organ dysfunction; D84.9 Immunodeficiency, unspecified; Z66 Do not resuscitate; Z51.5 Encounter for palliative care; H54.7 Unspecified visual loss; H91.90 Unspecified hearing loss, unspecified ear; I10 Essential (primary) hypertension; E78.00 Pure hypercholesterolemia, unspecified; I25.10 Atherosclerotic heart disease of native coronary artery without angina pectoris; F15.90 Other stimulant use, unspecified, uncomplicated; E11.65 Type 2 diabetes mellitus with hyperglycemia; E83.42 Hypomagnesemia; M19.90 Unspecified osteoarthritis, unspecified site; H26.9 Unspecified cataract; K21.9 Gastro-esophageal reflux disease without esophagitis; N52.9 Male erectile dysfunction, unspecified; E53.8 Deficiency of other specified B group vitamins; N40.1 Benign prostatic hyperplasia with lower urinary tract symptoms; N39.498 Other specified urinary incontinence; Z96.21 Cochlear implant status; F32.A Depression, unspecified; R74.8 Abnormal levels of other serum enzymes; G51.0 Bell's palsy; R00.1 Bradycardia, unspecified; Z95.5 Presence of coronary angioplasty implant and graft; Z86.73 Personal history of transient ischemic attack (TIA), and cerebral infarction without residual deficits; Z79.60 Long term (current) use of unspecified immunomodulators and immunosuppressants; Z92.3 Personal history of irradiation; Z88.8 Allergy status to other drugs, medicaments and biological substances; Z79.82 Long term (current) use of aspirin; Z79.02 Long term (current) use of antithrombotics/antiplatelets; Z79.1 Long term (current) use of non-steroidal anti-inflammatories (NSAID); Z79.899 Other long term (current) drug therapy; Z68.23 Body mass index [BMI] 23.0-23.9, adult; Z86.16 Personal history of COVID-19; Z90.49 Acquired absence of other specified parts of digestive tract; Z98.890 Other specified postprocedural states; Z86.008 Personal history of in-situ neoplasm of other site
CPT/HCPCS: 36415 ×2; 71045; 80053 ×2; 81001 ×2; 82306; 83605; 83735 ×2; 84439; 84443; 84484; 85025 ×2; 87040 ×2; 87428; 93005; 93010; 99285 ×2; A9270 ×2; J3475; J7042; 84145; 86140; 96365; 96366; 99223; 99233; 99238; G0378; J2060; J2270